=== PATIENT | female | born 2000 | race Hispanic/Latino ===

== ENCOUNTER 2018-09-22 14:32 | Emergency (ER) | payer OTHER, MEDICAID, SELFPAY ==
[2018-09-22 14:44] VITALS: PULSE 87; RESP 16; TEMP 36.3; O2SAT 99; BMI 35.4
--- NOTE | 2018-09-22 14:47 | DI.RAD.S_ITS ---
PROCEDURE: XR ANKLE LT MIN 3V INDICATIONS: left ankle pain felt pop TECHNIQUE: 3 views of the ankle were acquired. COMPARISON: None. FINDINGS: Bones: No fractures or dislocations. Ankle mortise is normally aligned. No suspicious bony lesions. There is a small plantar calcaneal spur. There is borderline widening of the distal tibiofibular syndesmosis. Soft tissues: No tibiotalar joint effusion. Prominent soft tissue swelling about the ankle is more prominent overlying the lateral malleolus. IMPRESSION: 1. No displaced left ankle fractures. 2. Borderline widening of the distal tibiofibular syndesmosis. Please correlate clinically to exclude a syndesmotic injury. 3. Soft tissue swelling about the lateral malleolus. Dictated by: Tuan Sutton M.D. on 09/22/2018 at 14:18 Approved by: Tuan Sutton M.D. on 09/22/2018 at 14:19
[2018-09-22 15:26] VITALS: BP 140/85; PULSE 75; RESP 14; O2SAT 98
--- NOTE | 2018-09-22 15:37 | ED.LOWEXIN ---
HPI - Extremity Injury (Lower) <Blossom Barrow PA-C - Last Filed: 09/22/18 21:03> General Chief Complaint: Extremity Injury, Lower Stated Complaint: Fell lt ankle pain Time Seen by Provider: 09/22/18 15:36 Source: patient Mode of arrival: ambulatory Limitations: no limitations History of Present Illness HPI Narrative: This 17-year-old female states that she was running, felt a pop and rolled her left ankle sideways early this morning. She states she fell due to this, but does not think she has any injuries or hurt her ankle when she fell, thinks it was before when she twisted it. She denies pain in the foot or other areas. She denies any weakness in the ankle and states she did walk on it after but painful. She has not taken any medication for this. She denies any other complaints today, denies any possibility of . Related Data Allergies Allergy/AdvReac Type Severity Reaction Status Date / Time acetaminophen [From Vicodin] AdvReac Intermediate Nausea Verified 09/22/18 14:46 hydrocodone [From Vicodin] AdvReac Intermediate Nausea Verified 09/22/18 14:46 Review of Systems <Blossom Barrow PA-C - Last Filed: 09/22/18 21:03> Review of Systems ROS Unobtainable: All systems reviewed & are unremarkable except as noted in HPI and below PFSH <Blossom Barrow PA-C - Last Filed: 09/22/18 21:03> Medical History (Updated 09/22/18 @ 16:12 by Blossom Barrow PA-C) No chronic problems (Chronic) Surgical History (Updated 09/22/18 @ 15:56 by Blossom Barrow PA-C) Status post appendectomy (Resolved) Social History Smoking Status: Current every day smoker Social History Smoking Status: Current every day smoker Exam <Blossom Barrow PA-C - Last Filed: 09/22/18 21:03> Narrative Exam Narrative: GENERAL APPEARANCE: Patient sitting comfortably, in no distress. LUNGS: Clear to auscultation bilaterally. HEART: Rate and rhythm regular without murmur, normal S1 and S2, no S3 or S4. MUSCULOSKELETAL: Left ankle moderate effusion, tender inferior and anterior to both malleoli, less tender over the anterior ankle. Achilles is intact by palpation. She is able to plantar and dorsiflex the toes, no tenderness over the foot or toes. She has reduced ROM of the ankle secondary to tenderness. Negative squeeze test/dorsiflexion external rotation test NEUROVASCULAR: Left foot warm and pink, sensation grossly intact Initial Vital Signs Initial Vital Signs: Vital Signs Temperature 97.4 F L 09/22/18 14:44 Pulse Rate 87 09/22/18 14:44 Respiratory Rate 16 09/22/18 14:44 Pulse Oximetry 99 09/22/18 14:44 <Joya Gomez DO - Last Filed: 09/23/18 07:30> Initial Vital Signs Initial Vital Signs: Vital Signs Temperature 97.4 F L 09/22/18 14:44 Pulse Rate 87 09/22/18 14:44 Respiratory Rate 16 09/22/18 14:44 Pulse Oximetry 99 09/22/18 14:44 Course <Blossom Barrow PA-C - Last Filed: 09/22/18 21:03> Additional Information: No ankle fracture on x-ray, question of syndesmotic injury. Exam not consistent with this however patient placed in walking boot and refer for orthopedic follow up to reassess as she does not have a primary care provider. Orders Ordered: Discontinued Medications Ibuprofen (Advil) 800 mg PO NOW ONE Stop: 09/22/18 15:58 Last Admin: 09/22/18 15:58 Dose: 800 mg Vital Signs - 8 hr 09/22/18 14:44 09/22/18 15:26 Temperature 97.4 F L Pulse Rate 87 75 Respiratory Rate 16 14 Blood Pressure [Left Wrist] 140/85 Pulse Oximetry 99 98 <DO Orville Moreira Last Filed: 09/23/18 07:30> Orders Ordered: Discontinued Medications Ibuprofen (Advil) 800 mg PO NOW ONE Stop: 09/22/18 15:58 Last Admin: 09/22/18 15:58 Dose: 800 mg Vital Signs - 8 hr 09/22/18 14:44 09/22/18 15:26 Temperature 97.4 F L Pulse Rate 87 75 Respiratory Rate 16 14 Blood Pressure [Left Wrist] 140/85 Pulse Oximetry 99 98 MDM - Extremity Injury (Lower) <Blossom Barrow PA-C - Last Filed: 09/22/18 21:03> Imaging Data ankle: Radiologist's impression: [address] [address] XRay Report Signed Patient: Lucio Thomas [facility]#: [id number] : 2000Acct:[id number] Age/Sex: 17 / FDate of Service: 09/22/18 Loc: ED Accession Number: [id number] Procedure: XR ankle LT min 3V Ordering Provider: Joya Gomez D.O. PROCEDURE: XR ANKLE LT MIN 3V INDICATIONS: left ankle pain felt pop TECHNIQUE: 3 views of the ankle were acquired. COMPARISON: None. FINDINGS: Bones: No fractures or dislocations. Ankle mortise is normally aligned. No suspicious bony lesions. There is a small plantar calcaneal spur. There is borderline widening of the distal tibiofibular syndesmosis. Soft tissues: No tibiotalar joint effusion. Prominent soft tissue swelling about the ankle is more prominent overlying the lateral malleolus. IMPRESSION: 1. No displaced left ankle fractures. 2. Borderline widening of the distal tibiofibular syndesmosis. Please correlate clinically to exclude a syndesmotic injury. 3. Soft tissue swelling about the lateral malleolus. Dictated by: Tuan Sutton M.D. on 09/22/2018 at 14:18 Approved by: Tuan Sutton M.D. on 09/22/2018 at 14:19 Discharge Plan Departure Patient Disposition: Home Clinical Impression: Ankle sprain and strain Discharge Date/Time: 09/22/18 16:20 Interventions: ED Discharge Assessment Last Done: 09/22/18 16:18 Instructions: DI for Ankle Sprain Activity Restrictions/Additional Instructions: There was no broken bone seen on your x-ray today, however you do have a sprained ankle. There was a question on the x-ray of whether there was a sprain higher up in your ankle. I do not see this on examination today, however due to this we have put you in an orthopedic boot. Please wear this at all times when you are bearing weight. Please call [facility] either today or 1st thing on Tuesday and let them know you were seen in the emergency room with a possible high ankle sprain and need to be seen for followup assessment next week. Please return to the ED as we talked about if you have any acutely worsening symptoms in the interim or new symptoms such as numbness, weakness, increased swelling or color change in your foot. Please continue ibuprofen 800 mg every 8 hours to help with pain and swelling and you can add Tylenol in addition to this as needed. Please call the hospital human resources project coordinator at [phone] as well so that you can get referred to a primary care provider. Referrals: Alejandro Canela MD [Physician] - <Joya Gomez DO - Last Filed: 09/23/18 07:30> Cosign ED Attending Mindyature Attestation: I was immediately available in the department for consultation. Documentation has been reviewed. I agree with assessment and plan.
[2018-09-22] MEDS: IBUPROFEN 400 MG TABLET 800 MG PO (15:58)
== END 2018-09-22 16:20 | disposition home or self-care (01) ==
PROVIDERS: Emergency Provider Internal Medicine
DX: S93.402A Sprain of unspecified ligament of left ankle, initial encounter (principal); W19.XXXA Unspecified fall, initial encounter; Y93.02 Activity, running
CPT/HCPCS: 29580; 73610; 99282; 99283